=== PATIENT | male | born 1945 | race Caucasian/White ===

== ENCOUNTER → 2023-11-23 16:23 | Outpatient (AMB) | payer MEDICARE, SELFPAY ==
--- NOTE | 2023-11-23 16:28 | AM.OFFWIN_ITS ---
Intake Vital Signs 11/23/23 16:29 Height 5 ft 6 in BP 132/72 Blood Pressure Location Lt brachial Position Sitting Pulse 87 Pulse Source Pulse Oximeter Temp 98.3 F Temp Source Oral Pulse Oximetry (%) 97 Oxygen Delivery Method Room Air Intake Visit Reasons: EP ?Sinus infection, Mucus, SOB Intake Note: pt is here for possible sinus infection, mucus and difficulty breathing Patient Tobacco Use Status: Never used Tobacco Allergies No Known Allergies Allergy (Verified 11/23/23 16:30) Do you need a note to return to daycare/school/sports/work: No HPI EP ?Sinus infection, Mucus, SOB HPI Details Patient presents for a sick visit. Reporting symptoms of sinus congestion, sore throat and difficulty swallowing. Low-grade fever. No family member is sick. No recent travel. Patient reports symptoms of malaise and fatigue. FOR[facility]LY [facility], [facility] Social History Patient Tobacco Use Status: Never used Tobacco Physical Exam Vital Signs: Last Vital Signs Temp 98.3 F 11/23/23 16:29 Pulse 87 11/23/23 16:29 BP 132/72 11/23/23 16:29 Pulse Ox 97 11/23/23 16:29 Oxygen Delivery Method Room Air 11/23/23 16:29 Const General: cooperative and healthy appearing Nutritional Appearance: well nourished Orientation/consciousness: patient oriented x3 Limitations: no limitations HEENT Head: Yes normal to inspection Eyes General: appearance normal, both eyes and all related structures Neck Neck: Yes normal visual inspection Chest Chest palpation & inspection: normal palpation of entire chest wall Resp Effort & Inspection: normal respiratory effort Neuro General: patient oriented x3 Assessment & Plan Assessment & Plan (1) Upper respiratory tract infection: Code(s): J06.9 - Acute upper respiratory infection, unspecified Plan: Antibiotics ordered. Increase fluid intake. Tylenol for aches and pains. If symptoms worsen, follow-up here for a recheck. Coding Level of Care Code Est Pt Level 3 (80338) Diagnoses Upper respiratory tract infection J06.9
[2023-11-23 16:29] VITALS: BP 132/72; PULSE 87; TEMP 36.8; O2SAT 97
== END ==
PROVIDERS: PCP Internal Medicine; Visit Provider Internal Medicine
DX: J06.9 Acute upper respiratory infection, unspecified (principal)
CPT/HCPCS: 99213